=== PATIENT | male | born 1935 | race Caucasian/White ===

== ENCOUNTER → 2016-06-15 | Outpatient (CLI) | payer OTHER | LOC: BHFA 14:00 | PROVIDERS: ATTEND Internal Medicine Cardiovascular Disease | DX: I48.91 Unspecified atrial fibrillation (principal); I34.0 Nonrheumatic mitral (valve) insufficiency; I10 Essential (primary) hypertension ==

== ENCOUNTER → 2016-07-07 | Outpatient (CLI) | payer OTHER | LOC: BHFA 14:45 | PROVIDERS: ATTEND Internal Medicine Cardiovascular Disease | DX: I34.0 Nonrheumatic mitral (valve) insufficiency (principal) ==

== ENCOUNTER 2017-01-13 10:20 | Day surgery (SDC) | payer OTHER ==
[2017-01-13 11:24] LABS: HEMATOCRIT 50.6 % (40.0-51.0)
[2017-01-13] MEDS ORDERED: fentaNYL 100 MCG/2 ML INJ ONE (11:31)
[2017-01-13] MEDS ORDERED: MIDAZOLAM 2 MG/2 ML VIAL ONE (11:31)
[2017-01-13] MEDS ORDERED: NALOXONE HCL 0.4 MG/ML INJ ONE (11:32)
[2017-01-13] MEDS ORDERED: FLUMAZENIL 0.5 MG/5 ML MDV IVP ONE (11:32)
[2017-01-13 11:33] LABS: INR 1.29 (0.83-1.16); PROTIME(PATIENT) 16.1 SEC (12.0-15.0)
[2017-01-13 11:34] LABS: APTT 28.5 SEC (23.0-38.0)
[2017-01-13] MEDS ORDERED: hydrALAZINE 20 MG/ML VIAL ONE (12:41)
[2017-01-13 16:01] VITALS: TEMP 97.5
[2017-01-13 16:36] VITALS: BP 140/103; RESP 12; O2SAT 93
== END 2017-01-13 14:22 | disposition home or self-care (01) ==
LOC: FIMAGING 10:20
PROVIDERS: ATTEND Radiology Diagnostic Radiology
PROC: BB271ZZ Computerized Tomography (CT Scan) of Right Tracheobronchial Tree using Low Osmolar Contrast (ICD-10-PCS; principal; 2017-01-13 13:14)
PROC: 0BBF3ZX Excision of Right Lower Lung Lobe, Percutaneous Approach, Diagnostic (ICD-10-PCS; principal; 2017-01-13 13:14)
DX: R91.1 Solitary pulmonary nodule (principal); I48.2 Chronic atrial fibrillation; Z87.891 Personal history of nicotine dependence; J44.9 Chronic obstructive pulmonary disease, unspecified; I10 Essential (primary) hypertension; I27.2 Other secondary pulmonary hypertension; E03.9 Hypothyroidism, unspecified
CPT/HCPCS: J0360; J2250; J2310; J3010

== ENCOUNTER → 2017-01-26 | Outpatient (CLI) | payer OTHER | LOC: BHFA 10:00 | PROVIDERS: ATTEND Internal Medicine Cardiovascular Disease | DX: I34.0 Nonrheumatic mitral (valve) insufficiency (principal) ==

== ENCOUNTER 2017-02-08 08:29 | Inpatient (IN) | payer OTHER ==
[~2017-02-08 08:29] MED LIST: ceFAZolin 2 GM/DEXTROSE 100 ML IV ONE
[2017-02-08] MEDS ORDERED: LIDOCAINE 1% 2 ML INJ ID PRN (10:07)
[2017-02-08] MEDS ORDERED: LR 1,000 ML IV ONE (10:07)
[2017-02-08] MEDS ORDERED: BUPIVACAINE 0.5% 30 ML SDV ONE (10:14)
[2017-02-08] MEDS ORDERED: THROMBIN (BOVINE) 5,000 UNIT VIAL TP ONE ×2 (10:14→16:16)
[2017-02-08 10:50] LABS: INR 1.28 (0.83-1.16)
--- NOTE | 2017-02-08 12:33 | PDANEPAE ---
ANE History of Present Illness rll lung mass ANE Past Medical History - Cardiovascular History Hx Hypertension: Yes Hx Arrhythmias: Yes Hx Chest Pain: No Hx Coronary Artery / Peripheral Vascular Disease: No Hx CHF / Valvular Disease: Yes Hx Palpitations: No Cardiovascular History Comment: Chronic A-fib. CHF. MITRAL REGURGITATION. LOWER EXTREMITY SWELLING - Pulmonary History Hx COPD: Yes Hx Asthma/Reactive Airway Disease: No Hx Recent Upper Respiratory Infection: No Hx Oxygen in Use at Home: No Hx Sleep Apnea: No Sleep Apnea Screening Result - Last Documented: Positive Pulmonary History Comment: ARBEN POSITIVE REFUSES TO USE CPAP. RIGHT LOWER LOBE CA - Neurologic History Hx Cerebrovascular Accident: No Hx Seizures: No Hx Dementia: No - Endocrine History Hx Diabetes: No Endocrine History Comment: HYPOTHYROIDISM - Renal History Hx Renal Disorders: No - Liver History Hx Hepatic Disorders: No - Neurological & Psychiatric Hx Hx Neurological and Psychiatric Disorders: No - Cancer History Hx Cancer: Yes Cancer History Comment: RIGHT LOWER LUNG LOBE CURRENTLY - Congenital Disorder History Hx Congenital Disorders: No - GI History Hx Gastrointestinal Disorders: No - Other Health History Other Health History: WEARS GLASSES. MACULAR DEGENERATION - Chronic Pain History Chronic Pain: No - Surgical History Prior Surgeries: LUNG BX 01/13/17. T&A; uroscopy; ANE Review of Systems Review of systems is: negative Review of Systems: - Exercise capacity Exercise capacity: >=4 METS METS (RN): 4 METS - Cardio Pulmonary Function Testing Transthoracic echocardiogram (TTE): 01/13 EF 65% DD, mild pHTN, MR Pulmonary function tests (PFTs): DLCO 19, fev1 2.9, fvc 3.8 ANE Patient History - Allergies Allergies/Adverse Reactions: No Known Allergies Allergy (Verified 02/07/17 14:19) - Home Medications Home Medications: Ascorbic Acid [Vitamin C 500 mg (*)] 500 mg PO DAILY 01/07/17 [Last Taken ] Atenolol [Tenormin 25 mg (*)] 25 mg PO DAILY 01/07/17 [Last Taken 02/07/17] Atorvastatin Calcium [Lipitor 10 mg (*)] 10 mg PO DAILY 01/07/17 [Last Taken 04/15] Chlorthalidone [Chlorthalidone 25 mg (*)] 50 mg PO DAILY 01/07/17 [Last Taken ] Cholecalciferol Vit D3 [Vitamin D3 (*)] 1,000 units PO DAILY 01/07/17 [Last Taken 02/07/17] Folic Acid [Folic Acid 1 MG (*)] 1 mg PO DAILY 01/07/17 [Last Taken Unknown] Furosemide [Lasix 20 MG (*)] 20 mg PO DAILY 01/07/17 [Last Taken 02/01/17] Herbals/Supplements -Info Only 1 ea PO DAILY 01/07/17 [Last Taken Unknown] Levothyroxine [Synthroid 125 mcg (*)] 125 mcg PO DAILY06 01/07/17 [Last Taken ] Lisinopril [Zestril 40 mg (*)] 40 mg PO DAILY 01/07/17 [Last Taken 02/07/17] Multivitamins [Multivitamin (*)] 1 each PO DAILY 01/07/17 [Last Taken 02/06/17] Potassium Cl [Klor-Con 20 meq (*)] 20 meq PO DAILY 01/07/17 [Last Taken 02/01/17 ] Warfarin Sodium [Coumadin 2.5MG (*)] 2.5 mg PO TuWeTh@16 01/07/17 [Last Taken Unknown] Warfarin Sodium [Coumadin 5MG (*)] 5 mg PO SUMOFRSA@16 02/07/17 [Last Taken 10/13] - NPO status NPO Status: no food or drink >8 hours NPO Since - Liquids (Date): 02/07/17 NPO Since - Liquids (Time): 21:00 NPO Since - Solids (Date): 02/07/17 NPO Since - Solids (Time): 21:00 - Anes Hx Anes Hx: no prior problems - Smoking Hx Smoking Status: Former smoker - Alcohol Use Alcohol Use: Occasionally - Family Anes Hx Family Hx Anesthesia Complications: denies ANE Labs/Vital Signs - Vital Signs Blood Pressure: 146/91 Heart Rate: 85 Respiratory Rate: 16 O2 Sat (%): 91 Height: 170.18 cm Weight: 90.038 kg ANE Physical Exam - Airway Neck exam: FROM Mallampati Score: Class 2 Mouth exam: normal dental/mouth exam - Pulmonary Pulmonary: no respiratory distress - Cardiovascular Cardiovascular: irregularly irregular - ASA Status ASA Status: III ANE Anesthesia Plan Anesthesia Plan: general endotracheal anesthesia Lines/Monitors: arterial line Specialized Airway: double lumen tube, video laryngoscope Total IV Anesthesia: No
[2017-02-08] MEDS ORDERED: fentaNYL 100 MCG/2 ML INJ ONE ×4 (12:58→17:42)
[2017-02-08] MEDS ORDERED: LIDOCAINE 2% 5 ML SDV ONE (12:58)
[2017-02-08] MEDS ORDERED: ROCURONIUM 100 MG/10 ML VIAL ONE (12:58)
[2017-02-08] MEDS ORDERED: PROPOFOL 200 MG/20 ML VIAL ONE (12:59)
[2017-02-08] MEDS ORDERED: ONDANSETRON 4 MG/2 ML VIAL ONE (13:00)
[2017-02-08] MEDS ORDERED: DEXAMETHASONE 4 MG/ML VIAL ONE (13:00)
[2017-02-08] MEDS ORDERED: ESMOLOL HCL 100 MG/10 ML VIAL IV ONE (13:52)
[2017-02-08] MEDS ORDERED: ONDANSETRON 4 MG/2 ML VIAL IVP PRN ×2 (14:16→16:49)
[2017-02-08 15:13] LABS: BASE EXCESS -0.6 mEq/L (-2.5-2.5); BICARBONATE 24 mEq/L (22-26); MEASURED OXYGEN SATURATION 76 % (92-95); PCO2 41 mmHg (34-38); PO2 45 mmHg (65-75); TCO2 25 mEq/L (23-27)
[2017-02-08] MEDS ORDERED: HEPARIN 1000 UNIT/1 ML MDV ONE (15:46)
[2017-02-08 16:12] LABS: BASE EXCESS -0.1 mEq/L (-2.5-2.5); BICARBONATE 25 mEq/L (22-26); MEASURED OXYGEN SATURATION 85 % (92-95); PCO2 43 mmHg (34-38); PO2 55 mmHg (65-75); TCO2 26 mEq/L (23-27)
[2017-02-08] MEDS ORDERED: THROMBIN (BOVINE) 20,000 UNIT SPRAY TP ONE (16:16)
[2017-02-08] MEDS ORDERED: LABETALOL HCL 50 MG/10 ML SYR IVP PRN (16:49)
[2017-02-08] MEDS ORDERED: NALOXONE HCL 0.4 MG/ML INJ IVP PRN (16:49)
[2017-02-08] MEDS ORDERED: ALBUTEROL 3 ML DEYVIAL IH PRN (16:49)
[2017-02-08] MEDS ORDERED: SUGAMMADEX SODIUM 200 MG/2 ML VIAL IVP ONE ×2 (16:52)
[2017-02-08] MEDS ORDERED: ceFAZolin 1 GM VIAL ONE ×2 (16:55)
--- NOTE | 2017-02-08 17:29 | POSTANESTH ---
Post Anesthetic Evaluation Cardiovascular Status: Normal, Stable Respiratory Status: Normal, Stable Level of Consciousness/Mental Status: Mildly Sleepy, Arousable Pain Control: Adequate, Prn Tx Ordered Nausea/Vomiting Control: Adequate, Prn Tx Ordered Complications Possibly Related to Anesthesia: None Noted (pt to ICU, VSS)
[2017-02-08] MEDS ORDERED: HYDROmorphONE/DILAUDID 1 MG/ML INJ ONE (17:42)
[2017-02-08] MEDS: fentaNYL 100 MCG/2 ML INJ IVP PRN ×2 (17:44→18:07)
[2017-02-08] MEDS: HYDROmorphONE/DILAUDID 1 MG/ML INJ IVP PRN ×7 (17:44→21:53)
--- NOTE | 2017-02-08 17:55 | POSTOPPROG ---
Post Op Note Date of Operation: 02/08/17 Surgeon: Narinder Ospina Annealing Torch Operator: OSVALDO Anesthesiologist: MIKAELA Anesthesia: GET(General Endotracheal) Pre-op Diagnosis: RLL LUNG CANCER Post-op Diagnosis: SAME Indication: CANCER Procedure: MEDIASTINOSCOPY/ VATS RLLOBECTOMY Findings: 2 CM RLL CANCER AT PERIPHERY WITH PUCKERED PLEURA/ NO BAD NODES Inf/Abcess present in the surg proc area at time of surgery?: No Depth: Organ Space EBL: 100-500 Complications: 0 Drains: Constavac Specimen(s): RLL
--- NOTE | 2017-02-08 19:47 | SOAPPROG ---
SOAP Progress Note Assessment/Plan: Assessment/Plan: 81 Y M s/p mediastinscopy, VATS lobectomy, POD#0. AFVSS. Wounds intact. CXR well expanded. Continue routine post op care. 02/08/17 19:46 Objective: Vital Signs Temp Pulse Resp BP Pulse Ox 36.5 C 85 15 117/74 91 L 02/08/17 18:57 02/08/17 12:37 02/08/17 19:21 02/08/17 19:17 02/08/17 19:21 02/07/17 02/08/17 02/09/17 05:59 05:59 05:59 Intake Total 1700 Output Total 985 Balance 715 PT 16.0 SEC (12.0-15.0) H 02/08/17 10:28 INR 1.28 (0.83-1.16) H 02/08/17 10:28 ICD10 Worksheet Patient Problems: Problems Problem Status Onset Lung mass Acute - ICD10 Problem Qualifiers (1) Lung mass
[2017-02-08] MEDS: BUPIVACAINE 0.5% 30 ML SDV CT SCH (20:40)
[2017-02-08] MEDS ORDERED: HYDROmorphONE/DILAUDID 1 MG/ML INJ IVP PRN (21:39)
[2017-02-08] MEDS: OXYCODONE/APAP 5/325 TAB PO PRN (21:53)
[2017-02-08] MEDS: D5W 1/2 NS W/ 20 KCl/L 1,000 ML IV SCH (22:01)
[2017-02-09] MEDS: BUPIVACAINE 0.5% 30 ML SDV CT SCH ×6 (01:03→21:48)
[2017-02-09] MEDS ORDERED: FUROSEMIDE 20 MG/2 ML VIAL IVP ONE (02:00)
[2017-02-09 04:44] LABS: HEMOGLOBIN 16.5 g/dL (13.7-17.5)
[2017-02-09 05:03] LABS: ANION GAP 15 mEq/L (8-16); CALCIUM 9.2 mg/dL (8.5-10.4); CARBON DIOXIDE 22 mEq/l (22-31); CHLORIDE 104 mEq/L (97-110); CREATININE 1.4 mg/dL (0.7-1.3); GLOMERULAR FILTRATION RATE 49; GLUCOSE 187 mg/dL (70-100); POTASSIUM 4.3 mEq/L (3.5-5.2); SODIUM 141 mEq/L (134-144)
[2017-02-09] MEDS: LEVOTHYROXINE 125 MCG TAB PO SCH (05:54)
[2017-02-09] MEDS: LISINOPRIL 40 MG TAB PO SCH (08:37)
[2017-02-09] MEDS: CHLORTHALIDONE 25 MG TAB PO SCH (08:37)
[2017-02-09] MEDS: FUROSEMIDE 20 MG TAB PO SCH (08:37)
[2017-02-09] MEDS: POTASSIUM CL 20 MEQ TAB PO SCH (08:38)
[2017-02-09] MEDS: ATORVASTATIN CALCIUM 10 MG TAB PO SCH (08:42)
[2017-02-09] MEDS: ATENOLOL 25 MG TAB PO SCH (08:42)
--- NOTE | 2017-02-09 09:08 | SOAPPROG ---
SOAP Progress Note Assessment/Plan: Assessment/Plan: 81 Y M s/p mediastinscopy, VATS lobectomy, POD#1. Pulm: Continue CT to LWS. IS. OOB. Deep breathing. Cardiac: hx CHF, afib. Cont atenolol, lasix. Restart coumadin today, INR series x 3. Lovenox tomorrow. GI: regular diet. pepcid GI ppx. : continue shay, accurate I and O's; CRI, Cr 1.4, stable compared to prior labs. Repeat labs in am. Heme: no anemia. Neuro: continue pain control PRN. marcaine cath in place. Endo: levothyroxine for hypothyroid. Wounds: well dressed. Keep dry. Also seen by Dr. Ospina earlier this morning. Dispo: transfer from ICU. S: not in much pain, denies SOB, ate this morning but not impressed with the food. no n/v. O: gen: alert, nad, making jokes heent: mmm chest: clear at apices, +intermittent air leak at rest, seen with cough cor: rrr abd: soft, nt wounds: well dressed. 02/09/17 09:13 Objective: Vital Signs Temp Pulse Resp BP Pulse Ox 36 C 98 18 105/76 97 02/09/17 08:00 02/09/17 08:42 02/09/17 08:00 02/09/17 08:42 02/09/17 08:00 Laboratory Results 02/09/17 04:35 02/09/17 04:35 02/08/17 02/09/17 02/10/17 05:59 05:59 05:59 Intake Total 2786 Output Total 1585 Balance 1201 PT 16.0 SEC (12.0-15.0) H 02/08/17 10:28 INR 1.28 (0.83-1.16) H 02/08/17 10:28 ICD10 Worksheet Patient Problems: Problems Problem Status Onset Lung mass Acute - ICD10 Problem Qualifiers (1) Lung mass
--- NOTE | 2017-02-09 12:22 | GOP ---
[f rep st] OPERATIVE REPORT DATE OF OPERATION: 02/08/2017 SURGEON: Narinder Ospina MD ANESTHESIOLOGIST: Jc Dc MD. PREOPERATIVE DIAGNOSIS: Right lung cancer. POSTOPERATIVE DIAGNOSIS: Right lung cancer. PROCEDURE PERFORMED: Mediastinoscopy. FINDINGS: The patient was found to have no obvious mediastinal nodes of significance. ESTIMATED BLOOD LOSS: Negligible. DESCRIPTION OF PROCEDURE: The patient was taken to the operating room where he received satisfactory general endotracheal anesthesia by Dr. Dc. He was placed in a supine position, prepped and dr aped in usual sterile fashion with the neck extended. A short incision was made in the low neck. Di ssection was carried down through the platysma. Strap muscles were in the midline. Pretra cheal space was entered and using blunt dissection extended down into the chest. He had a rather pro minent innominate artery filling up the suprasternal notch. Dissection extended down underneath the innominate down to the pulmonary artery. No significant major lymph nodes were encountered and disse cting in the area. Hemostasis was assured. The wound was irrigated and the scope was removed. The wound was closed with 3-0 Vicryl for the strap muscles, 3-0 Vicryl for the platysma, 4-0 Monocryl sub cuticular stitch for the skin. All layers infiltrated with 0.5% Marcaine. DISPOSITION: Taken to recovery room in good condition. /[id number]/MODL
--- NOTE | 2017-02-09 13:02 | GOP ---
[f rep st] OPERATIVE REPORT DATE OF OPERATION: 02/08/2017 SURGEON: Narinder Ospina MD CASHIER TUBE ROOM: LIZZY Brown and Dr. Good Doan MD ANESTHESIOLOGIST: Dr. Dc. PREOPERATIVE DIAGNOSIS: Right lower lobe lung cancer. POSTOPERATIVE DIAGNOSIS: Right lower lobe lung cancer. PROCEDURE PERFORMED: Video-assisted thoracoscopic surgery, right lower lobectomy. Intercostal nerve block. Marcaine catheter placement FINDINGS: The patient was found to have a 2 cm mass in the periphery of the right lower lobe, which was puckering the lobe. He had some emphysematous changes in his lung. ESTIMATED BLOOD LOSS: Less than 300 cc. DESCRIPTION OF PROCEDURE: The patient was in the operating room with general endotracheal anesthesia by Dr. Dc. A double-lumen endotracheal tube was placed, and he was placed in the left lateral decubitus position, prepped and draped in usual sterile fashion. A short incision was made in the 6 th intercostal space in the midaxillary line. A trocar was introduced, a thoracoscope introduced. A dequate visualization was obtained. Four other trocars were placed in separate areas in the right ch est. The lower lobe was retracted. The major fissure was well developed. The basilar pulmonary art archana was then carefully dissected free until it could be encircled with a vascular stapler. It was th en transected without difficulty. The superior segmental artery was also transected separately with a vascular stapler. Lymph nodes were dissected free from the pulmonary artery and left with the spec imen. Attention was turned to the inferior pulmonary ligament, which was divided with the Harmonic S calpel until the pulmonary vein was exposed. This was then carefully dissected free, dividing the pl eura on either side of the pulmonary vein until it too could be encircled. It was then also divided with the endovascular stapler. The remainder of any pleural attachments were divided with the Multani ic Scalpel and/or those staplers, skeletonizing the lower lobe bronchus. This was then cross-clamped with an Endo-SHAWNEE stapler, and the upper and middle lobe were then re-expanded and appeared to have n o compromise. The stapler was then fired, closing the lower lobe bronchus, and the lung was then rem aakash. One of the trocar sites was enlarged to 3 inches in size for evacuation of the lung. Hemostas is was assured. The specimen was sent to Pathology, and the margins appeared to be clear. Intercost al nerve block was done with 0.5% Marcaine. Two #28 chest tubes were brought in through separate tro car sites and secured to the skin with silk sutures. The muscular layers were closed with a running #1 Vicryl suture. Wound was directly infiltrated with 0.5% Marcaine. Subcu was closed with a runnin g 3-0 Vicryl suture, and the skin with skin stewart. Additional trocar sites were closed with skin s taples as well. The wounds were dressed. A 16-N[place] Marcaine catheter was inserted intercostally a s well and placed posteriorly in the chest, secured at the skin with silk suture for a Marcaine infus ion. He tolerated procedure well, was taken to the recovery room in good condition. There were no c omplications. /[id number]/MODL
[2017-02-09] MEDS ORDERED: WARFARIN SODIUM 2.5 MG TAB PO SCH (16:00)
[2017-02-09] MEDS: NS 1,000 ML IV SCH (16:02)
[2017-02-09] MEDS ORDERED: IPRATROPIUM/ALBUTEROL 3 ML DEYVIAL ONE (16:40)
[2017-02-09] MEDS: IPRATROPIUM/ALBUTEROL 3 ML DEYVIAL IH SCH ×2 (16:48→20:08)
[2017-02-09] MEDS: FAMOTIDINE 20 MG TAB PO SCH (21:48)
[2017-02-10] MEDS: NS 1,000 ML IV SCH (01:49)
[2017-02-10] MEDS: BUPIVACAINE 0.5% 30 ML SDV CT SCH ×6 (01:50→21:31)
[2017-02-10] MEDS: OXYCODONE/APAP 5/325 TAB PO PRN ×2 (04:05→05:54)
[2017-02-10] MEDS: LEVOTHYROXINE 125 MCG TAB PO SCH (04:06)
[2017-02-10 05:27] LABS: INR 1.37 (0.83-1.16); PROTIME(PATIENT) 16.9 SEC (12.0-15.0)
[2017-02-10 05:28] LABS: ANION GAP 13 mEq/L (8-16); CALCIUM 9.1 mg/dL (8.5-10.4); CARBON DIOXIDE 27 mEq/l (22-31); CHLORIDE 102 mEq/L (97-110); CREATININE 1.8 mg/dL (0.7-1.3); GLOMERULAR FILTRATION RATE 36; GLUCOSE 104 mg/dL (70-100); POTASSIUM 4.6 mEq/L (3.5-5.2); SODIUM 142 mEq/L (134-144)
[2017-02-10] MEDS: IPRATROPIUM/ALBUTEROL 3 ML DEYVIAL IH SCH ×4 (05:37→20:55)
[2017-02-10] MEDS: HYDROmorphONE/DILAUDID 1 MG/ML INJ IVP PRN (08:02)
[2017-02-10] MEDS: FUROSEMIDE 20 MG TAB PO SCH (08:03)
[2017-02-10] MEDS: ATORVASTATIN CALCIUM 10 MG TAB PO SCH (08:03)
[2017-02-10] MEDS: ATENOLOL 25 MG TAB PO SCH (08:03)
[2017-02-10] MEDS: FAMOTIDINE 20 MG TAB PO SCH (08:03)
[2017-02-10] MEDS: POTASSIUM CL 20 MEQ TAB PO SCH (08:03)
[2017-02-10] MEDS: LISINOPRIL 40 MG TAB PO SCH (08:04)
[2017-02-10] MEDS: CHLORTHALIDONE 25 MG TAB PO SCH (08:04)
[2017-02-10] MEDS ORDERED: ENOXAPARIN 40 MG/0.4 ML SYR SC SCH (09:00)
[2017-02-10] MEDS ORDERED: LACTULOSE 20 GM/30 ML UDCUP PO PRN (11:18)
[2017-02-10] MEDS ORDERED: MAGNESIUM HYDROXIDE 30 ML UDCUP PO PRN (11:18)
[2017-02-10] MEDS ORDERED: POLYETHYLENE GLYCOL 3350 17 GM PKT PO PRN (11:18)
[2017-02-10] MEDS ORDERED: BISACODYL 10 MG SUPP PR PRN (11:18)
--- NOTE | 2017-02-10 12:07 | SOAPPROG ---
SOBRAIN Progress Note Assessment/Plan: Assessment: 81 Y M s/p mediastinscopy, VATS lobectomy, POD#1. Continue CT to LWS. Will obtain a second CXR after [address] 200cc out since 6am today. Respiratory therapy to see. Bowel reg Continue pain control. Coumadin restarted yesterday. INR today 1.37. Lovenox today. Cont Chapman for accurate Is and Os Cr stable Wounds well dressed, keep dry Discussed with Dr. Ospina S: Pain well controlled. Denies SOB, N/V. Not passing flatus or BM. Tolerating diet. O: Sitting up in chair. NAD MMM No airleak appreciated Lungs clear at apices. RRR Abdomen soft, nontender. Hypoactive BS Objective: Vital Signs Temp Pulse Resp BP Pulse Ox 36.8 C 103 H 17 155/62 H 93 02/10/17 08:00 02/10/17 10:35 02/10/17 10:35 02/10/17 08:04 02/10/17 10:35 Laboratory Results 02/09/17 04:35 02/10/17 04:05 02/09/17 02/10/17 02/11/17 05:59 05:59 05:59 Intake Total 2786 2014 Output Total 1585 1570 Balance 1201 445 PT 16.9 SEC (12.0-15.0) H 02/10/17 04:05 INR 1.37 (0.83-1.16) H 02/10/17 04:05 ICD10 Worksheet Patient Problems: Problems Problem Status Onset Lung mass Acute
[2017-02-10] MEDS: D5W 1/2 NS W/ 20 KCl/L 1,000 ML IV SCH (13:05)
--- NOTE | 2017-02-10 15:59 | ASMTCMCOM ---
CM Note CM Note Notes: Met w/ pt, reviewed chart and spoke w/RN. Pt pays for private care givers for 12 hours a day during the overnight shift. No case management d/c needs identified., PT recommending Home. Case management d/c poc: Home w/family support and private healthcare architect support. Case management available if needs change. Date Signed: 02/10/2017 03:59 PM Electronically Signed By:Jayda Higgins RN
[2017-02-10] MEDS ORDERED: WARFARIN SODIUM 2.5 MG TAB PO SCH (16:00)
--- NOTE | 2017-02-10 17:05 | SOAPPROG ---
SOAP Progress Note Assessment/Plan: Assessment: MUCH IMPROVED THIS AFTERNOON WITH BETTER EX EXPANSION ON HIS CHEST X-RAY. 1 CHEST TUBE IS COMING OUT OF THE CHEST BUT STILL NO AIR LEAK. MODERATE DRAINAGE PATH PENDING Plan: HOPEFULLY CHEST TUBES OUT IN THE A.M. 02/10/17 17:04 Objective: Vital Signs Temp Pulse Resp BP Pulse Ox 36.4 C 81 14 130/95 H 95 02/10/17 16:52 02/10/17 16:52 02/10/17 16:52 02/10/17 16:52 02/10/17 16:52 Laboratory Results 02/09/17 04:35 02/10/17 04:05 02/09/17 02/10/17 02/11/17 05:59 05:59 05:59 Intake Total 9786 2014 Output Total 1585 1570 Balance 1201 445 PT 16.9 SEC (12.0-15.0) H 02/10/17 04:05 INR 1.37 (0.83-1.16) H 02/10/17 04:05 ICD10 Worksheet Patient Problems: Problems Problem Status Onset Lung mass Acute
[2017-02-10] MEDS: SENNOSIDES/DOCUSATE SODIUM TAB PO SCH (21:31)
[2017-02-11] MEDS: BUPIVACAINE 0.5% 30 ML SDV CT SCH ×7 (01:40→22:29)
[2017-02-11] MEDS: OXYCODONE/APAP 5/325 TAB PO PRN (01:41)
[2017-02-11 05:18] LABS: INR 1.48 (0.83-1.16); PROTIME(PATIENT) 17.9 SEC (12.0-15.0)
[2017-02-11] MEDS: IPRATROPIUM/ALBUTEROL 3 ML DEYVIAL IH SCH ×4 (05:57→20:35)
[2017-02-11] MEDS: LEVOTHYROXINE 125 MCG TAB PO SCH (06:22)
[2017-02-11] MEDS: ATORVASTATIN CALCIUM 10 MG TAB PO SCH (08:52)
[2017-02-11] MEDS: SENNOSIDES/DOCUSATE SODIUM TAB PO SCH ×2 (08:52→20:31)
[2017-02-11] MEDS: LISINOPRIL 40 MG TAB PO SCH (08:52)
[2017-02-11] MEDS: POTASSIUM CL 20 MEQ TAB PO SCH (08:52)
[2017-02-11] MEDS: CHLORTHALIDONE 25 MG TAB PO SCH (08:52)
[2017-02-11] MEDS: FUROSEMIDE 20 MG TAB PO SCH (08:52)
[2017-02-11] MEDS: FAMOTIDINE 20 MG TAB PO SCH (08:52)
[2017-02-11] MEDS: ATENOLOL 25 MG TAB PO SCH (08:52)
--- NOTE | 2017-02-11 10:33 | SOAPPROG ---
SOAP Progress Note Assessment/Plan: Assessment: MUCH IMPROVED THIS AFTERNOON WITH BETTER EX EXPANSION ON HIS CHEST X-RAY. 1 CHEST TUBE IS COMING OUT OF THE CHEST BUT STILL NO AIR LEAK. MODERATE DRAINAGE PATH PENDING Plan: HOPEFULLY CHEST TUBES OUT IN THE A.M. 02/10/17 17:04 02/11/17 10:31 Afebrile/he is reasonably comfortable/wound okay/no air leak/drainage decreased/ plan DC chest tubes, superior chest tube is coming out on its own/path pending Hopefully he will have a better respiratory effort without the chest tubes in place Objective: Vital Signs Temp Pulse Resp BP Pulse Ox 36.5 C 90 16 104/69 83 L 02/11/17 07:55 02/11/17 07:55 02/11/17 07:55 02/11/17 07:55 02/11/17 08:12 Laboratory Results 02/09/17 04:35 02/10/17 04:05 02/10/17 02/11/17 02/12/17 05:59 05:59 05:59 Intake Total 2014 2647 Output Total 1570 2240 200 Balance 445 408 -200 PT 17.9 SEC (12.0-15.0) H 02/11/17 04:00 INR 1.48 (0.83-1.16) H 02/11/17 04:00 ICD10 Worksheet Patient Problems: Problems Problem Status Onset Lung mass Acute
[2017-02-11] MEDS ORDERED: NS 1,000 ML IV SCH (15:00)
[2017-02-11] MEDS ORDERED: WARFARIN SODIUM 5 MG TAB PO SCH ×2 (16:00)
--- NOTE | 2017-02-11 16:04 | ASMTCMCOM ---
CM Note CM Note Notes: Met with patient who is unable to clearly articulate follow up POC for discharge. Spoke with his daughter Wendy (also POA) and it is her wish that he have some rehab as he tries to care for his SO who has multiple medical issues, She will meet with CM and patient tomorrow to formulate a plan for discharge. Currently 24 hour cargivers present in home for 1 week but primarily to care for Rosamaria his SO. Patient has been to [facility] in the past for rehab. Daughter did mention that she is closer to [facility]. FAVIOLA in chart if needed. CM to follow. Date Signed: 02/11/2017 04:04 PM Electronically Signed By:Saba Souza RN
[2017-02-12] MEDS: LEVOTHYROXINE 125 MCG TAB PO SCH (03:58)
[2017-02-12] MEDS: BUPIVACAINE 0.5% 30 ML SDV CT SCH (03:59)
[2017-02-12] MEDS: IPRATROPIUM/ALBUTEROL 3 ML DEYVIAL IH SCH ×2 (05:57→11:35)
[2017-02-12 06:19] LABS: INR 1.62 (0.83-1.16); PROTIME(PATIENT) 19.3 SEC (12.0-15.0)
[2017-02-12 07:24] VITALS: RESP 16
[2017-02-12] MEDS: FAMOTIDINE 20 MG TAB PO SCH (09:09)
[2017-02-12] MEDS: ATENOLOL 25 MG TAB PO SCH (09:09)
[2017-02-12] MEDS: CHLORTHALIDONE 25 MG TAB PO SCH (09:09)
[2017-02-12] MEDS: ATORVASTATIN CALCIUM 10 MG TAB PO SCH (09:09)
[2017-02-12] MEDS: POTASSIUM CL 20 MEQ TAB PO SCH (09:10)
[2017-02-12] MEDS: FUROSEMIDE 20 MG TAB PO SCH (09:10)
[2017-02-12] MEDS: SENNOSIDES/DOCUSATE SODIUM TAB PO SCH (09:10)
[2017-02-12] MEDS: LISINOPRIL 40 MG TAB PO SCH (09:10)
[2017-02-12] MEDS ORDERED: ACETAMINOPHEN 325 MG TAB PO PRN (09:31)
[2017-02-12 10:21] LABS: % IMMATURE GRANULYOCYTES 0.5 % (0.0-1.1); ABSOLUTE IMMATURE GRANULOCYTES 0.06 10^3/uL (0.00-0.10); ADD DIFF? NO; ADD MORPH? NO; ADD SCAN? NO; ATYPICAL LYMPHOCYTE FLAG 0 (0-99); FRAGMENT RBC FLAG 0 (0-99); HEMATOCRIT 42.2 % (40.0-51.0); LEFT SHIFT FLG 0 (0-99); LIPEMIA HEMOLYSIS FLAG 80 (0-99); MEAN CELL HEMOGLOBIN 31.6 pg (27.9-34.1); MEAN CELL HEMOGLOBIN CONCENTR. 33.2 g/dL (32.4-36.7); MEAN CELL VOLUME 95.3 fL (81.5-99.8); MEAN PLATELET VOLUME 11.5 fL (8.7-11.7); PLATELET CLUMPS FLAG 0 (0-99); PLATELET COUNT 158 10^3/uL (150-400); RED BLOOD CELL COUNT 4.43 10^6/uL (4.40-6.38); RED CELL DISTRIBUTION WIDTH 13.5 % (11.5-15.2)
--- NOTE | 2017-02-12 10:37 | SOAPPROG ---
SOAP Progress Note Assessment/Plan: Assessment: 81yo male s/p right lower lobectomy for right lower lobe lung cancer. POD#6 Plan: Neuro: pain not well controlled. Per nurse pt seems resistant to narcotics. Will order tylenol PO Wound: No heavy lifting pushing or pulling greater than 15 lbs for 5 weeks Remove dressing on Tuesday02/14/2017 May shower 02/14/2017 without dressings Follow up with Dr. Ospina in 1 week Get a chest x ray prior to appointment Cardio: Stable Resp: Continue deep inspiration/coughing/IS to improve lung function. Continue oxygen therapy until pt is above 90% on RA. Chest x-ray showed small pneumothorax stable from previous CXRs. FEN: Discontinue IV fluids, labs have been showing decreasing creatinine over the past several days will order full chemistry panel to evaluate. regular diet. Get CBC and BMP in one week Heme/ID: Stable PT/OT: Will discharge to rehab facility ([facility]) S: Pt is doing well overall and would like to go home today but had two falls last night. He is upset discharge to home is not recommended. O: Gen: WDWN elderly male sitting in chair eating breakfast HEENT: Normocephalic atraumatic, PER, no gross hearing deficits, mucous membranes moist Respiratory: Lungs are clear to auscultation bilaterally with decreased breath sounds in the right lower field. No increased work of breathing. Oxygen 3L via nasal cannula. Cor: Regular rate Chest: Dressings intact without staining. 02/12/17 10:25 02/12/17 11:14 Objective: Vital Signs Temp Pulse Resp BP Pulse Ox 36.7 C 89 16 116/79 94 02/12/17 07:21 02/12/17 07:21 02/12/17 07:21 02/12/17 07:21 02/12/17 07:21 Laboratory Results 02/12/17 10:11 02/11/17 02/12/17 02/13/17 05:59 05:59 05:59 Intake Total 2648 1520 Output Total 2240 0 Balance 408 -530 PT 19.3 SEC (12.0-15.0) H 02/12/17 05:00 INR 1.62 (0.83-1.16) H 02/12/17 05:00 ICD10 Worksheet Patient Problems: Problems Problem Status Onset Lung mass Acute
[2017-02-12 10:46] LABS: ANION GAP 12 mEq/L (8-16); CARBON DIOXIDE 26 mEq/l (22-31); CHLORIDE 103 mEq/L (97-110); CREATININE 1.4 mg/dL (0.7-1.3); GLOMERULAR FILTRATION RATE 49; GLUCOSE 152 mg/dL (70-100); POTASSIUM 3.8 mEq/L (3.5-5.2); SODIUM 141 mEq/L (134-144)
[2017-02-12 11:21] VITALS: BP 128/78; TEMP 97.8
[2017-02-12 11:41] VITALS: PULSE 80; O2SAT 96
--- NOTE | 2017-02-12 11:54 | PDIAF ---
- Diagnosis Diagnosis: lung cancer Code Status: Full Code - Medication Management Discharge Medications: Medications to Continue on Transfer Ascorbic Acid [Vitamin C 500 mg (*)] 500 mg PO DAILY 01/07/17 [Last Taken ] Atenolol [Tenormin 25 mg (*)] 25 mg PO DAILY 01/07/17 [Last Taken 02/07/17] Atorvastatin Calcium [Lipitor 10 mg (*)] 10 mg PO DAILY 01/07/17 [Last Taken 04/15] Chlorthalidone [Chlorthalidone 25 mg (*)] 50 mg PO DAILY 01/07/17 [Last Taken ] Cholecalciferol Vit D3 [Vitamin D3 (*)] 1,000 units PO DAILY 01/07/17 [Last Taken 02/07/17] Folic Acid [Folic Acid 1 MG (*)] 1 mg PO DAILY 01/07/17 [Last Taken Unknown] Furosemide [Lasix 20 MG (*)] 20 mg PO DAILY 01/07/17 [Last Taken 02/01/17] Herbals/Supplements -Info Only 1 ea PO DAILY 01/07/17 [Last Taken Unknown] Levothyroxine [Synthroid 125 mcg (*)] 125 mcg PO DAILY06 01/07/17 [Last Taken ] Lisinopril [Zestril 40 mg (*)] 40 mg PO DAILY 01/07/17 [Last Taken 02/07/17] Multivitamins [Multivitamin (*)] 1 each PO DAILY 01/07/17 [Last Taken 02/06/17] Potassium Cl [Klor-Con 20 meq (*)] 20 meq PO DAILY 01/07/17 [Last Taken 02/01/17 ] Warfarin Sodium [Coumadin 2.5MG (*)] 2.5 mg PO TUTHSA@16 01/07/17 [Last Taken Unknown] Warfarin Sodium [Coumadin 5MG (*)] 5 mg PO SUMOWEFR@02/07/17 [Last Taken 10/13] Acetaminophen [Tylenol 325mg (*)] 650 mg PO Q4HRS PRN tab 02/12/17 [Last Taken Unknown] Discharge Medications: Refer to the Discharge Home Medication list for PRN reason. - Orders Oxygen: 3 L and wean as appropriate Diet Recommendation: no restrictions on diet Wound Care Instructions: remove dressing on 9/18. May shower. May remove every other staple on 02/17/2017 Activity/Weight Bearing Restrictions: No heavy lifting, pushing or pulling greater than 15 lbs until March 23, 2017 - Labs/Radiology BMP Date: 02/16/17 CBC Date: 02/16/17 Imaging Orders: Chest x ray prior to appointment with Dr. Ospina - Follow Up Care Current Providers and Referrals: Narinder Ospina MD [Medical Doctor] - follow up in 1 week (call to make an appointment) Sharla Aguirre NP [Primary Care Provider] -
--- NOTE | 2017-02-12 12:14 | ASMTCMCOM ---
CM Note CM Note Notes: Today RN asked SWer to speak w/ Pt. about his d/c plan. Pt. has been refusing SNF, but fell twice yesterday and is at great risk if he goes home. Reportedly, Pt's partner Pat has been debilitated and the couple has been having "[facility] 24-hour care" per Pt. SWer met w/ Pt. in room and after a discussion Pt. agreed to go to [facility] SNF. Pt. states he has been there before. [facility] has a bed today and Pt. can d/c there today. Coordinated w/ MD for d/c planning. All documentation provided through [employer] including d/c paperwork. Dtr is wary about [facility] reviews online, but is OK with d/c and grateful that SW had successful conversation with Pt. Pt. to be picked up by [facility]'s wheelchair at 13:00. RN is aware. Pt. d/c'ed today to [facility] for rehab. Date Signed: 02/12/2017 12:13 PM Electronically Signed By:Paulina Zelaya LCSW
--- NOTE | 2017-02-12 17:06 | ASDISCHSUM ---
Discharge Information Plan Status:SNF Medically Cleared to Leave: Discharge Date:02/12/2017 01:53 PM D/C Disposition:[facility] ADT D/C Disposition:[facility] Facility Projected Discharge Date:02/12/2017 11:00 AM Transportation at D/C:Wheelchair Van Discharge Delay Reason: Follow-Up Date:02/12/2017 11:00 AM Discharge Slot: Final Diagnosis: Placement Information Referral Type:*Long-Term/SNF Referral ID:[id number] Provider Name:Dunia Scott Address 1[address] Phone Number: Address 2: Fax Number: City:[place] Selection Factors: State:[place] Patient Contact Information Contact Name:ELYSIA Relationship:Daughter Address: City: [facility] Phone: [facility] Code: Email: Financial Information Financial Class: Primary Plan Desc:MEDICARE INPATIENT Primary Plan Number:[id number] Secondary Plan Desc:YOBANY Secondary Plan Number:[id number] Assessment Information [facility] CM Progress Note CM Note CM Note Notes: Met w/ pt, reviewed chart and spoke w/RN. Pt pays for private care givers for 12 hours a day during the overnight shift. No case management d/c needs identified., PT recommending Home. Case management d/c poc: Home w/family support and private direct care staffer support. Case management available if needs change. Date Signed: 02/10/2017 03:59 PM Electronically Signed By:Jayda Higgins RN [facility] CM Progress Note CM Note CM Note Notes: Met with patient who is unable to clearly articulate follow up POC for discharge. Spoke with his daughter Wendy (also POA) and it is her wish that he have some rehab as he tries to care for his SO who has multiple medical issues, She will meet with CM and patient tomorrow to formulate a plan for discharge. Currently 24 hour cargivers present in home for 1 week but primarily to care for Rosamaria his SO. Patient has been to [facility] in the past for rehab. Daughter did mention that she is closer to [place]. FAVIOLA in chart if needed. CM to follow. Date Signed: 02/11/2017 04:04 PM Electronically Signed By:Saba Souza RN [facility] CM Progress Note CM Note CM Note Notes: Today RN asked SWer to speak w/ Pt. about his d/c plan. Pt. has been refusing SNF, but fell twice yesterday and is at great risk if he goes home. Reportedly, Pt's partner Pat has been debilitated and the couple has been having "[facility] 24-hour care" per Pt. SWer met w/ Pt. in room and after a discussion Pt. agreed to go to [facility]. Pt. states he has been there before. [facility] has a bed today and Pt. can d/c there today. Coordinated w/ MD for d/c planning. All documentation provided through [employer] including d/c paperwork. Dtr is wary about [facility]'s reviews online, but is OK with d/c and grateful that SW had successful conversation with Pt. Pt. to be picked up by [facility]'s wheelchair at 13:00. RN is aware. Pt. d/c'ed today to [facility] for rehab. Date Signed: 02/12/2017 12:13 PM Electronically Signed By:Paulina Zelaya LCSW Intervention Information
== END 2017-02-12 13:53 | DRG 164 ==
LOC: F3E 09:33 → F2N 19:32 → F2W 02-09 10:23
PROVIDERS: ADMIT Surgery; ATTEND Surgery
PROC: 0BTF4ZZ Resection of Right Lower Lung Lobe, Percutaneous Endoscopic Approach (ICD-10-PCS; principal; 2017-02-08 11:30)
PROC: 0WJC4ZZ Inspection of Mediastinum, Percutaneous Endoscopic Approach (ICD-10-PCS; principal; 2017-02-08 11:30)
DX: C34.31 Malignant neoplasm of lower lobe, right bronchus or lung (principal); I48.91 Unspecified atrial fibrillation; I50.30 Unspecified diastolic (congestive) heart failure; I11.0 Hypertensive heart disease with heart failure; J44.9 Chronic obstructive pulmonary disease, unspecified; E78.5 Hyperlipidemia, unspecified; I27.2 Other secondary pulmonary hypertension; G47.30 Sleep apnea, unspecified; I34.0 Nonrheumatic mitral (valve) insufficiency; Z79.01 Long term (current) use of anticoagulants
CPT/HCPCS: 97116-GP; 97161-GP; 97165-GO; 97530-GO; 97535-GO; G8978-GP-CJ; G8979-GP-CI; G8987-GO-CJ; G8988-GO-CI; J0690; J1100; J1170; J1940; J2405; J2704; J3010

== ENCOUNTER → 2017-03-28 | Outpatient (CLI) | payer OTHER | LOC: FIMAGING 12:03 | PROVIDERS: ATTEND Surgery | DX: C34.31 Malignant neoplasm of lower lobe, right bronchus or lung (principal); Z90.2 Acquired absence of lung [part of] ==

== ENCOUNTER → 2017-03-31 | Outpatient (CLI) | payer OTHER | LOC: FCPNEURO 08:54 | PROVIDERS: ATTEND Psychiatry & Neurology Neurology | DX: R41.3 Other amnesia (principal) ==

== ENCOUNTER → 2017-03-31 | Outpatient (CLI) | payer OTHER ==
--- NOTE | 2017-03-31 11:44 | CPEEG ---
[f rep st] ELECTROENCEPHALOGRAM DATE OF STUDY: 03/31/2017 INTERPRETATION: Normal EEG during wakefulness and partial sleep. There were no potentially epilepto genic abnormalities present during the recording. REPORT: This EEG contains 9-10 Hz alpha to the posterior head regions. There was no abnormal activa tion at rest. The patient intermittently became drowsy and fell into light sleep during the study. There was no abnormal activation during drowsiness, light sleep, or during times of arousal. /[id number]/MODL
== END ==
LOC: FCPNEURO 20:00
PROVIDERS: ATTEND Internal Medicine Sleep Medicine
DX: G47.33 Obstructive sleep apnea (adult) (pediatric) (principal); G47.39 Other sleep apnea; G47.61 Periodic limb movement disorder; R41.3 Other amnesia

== ENCOUNTER → 2017-04-18 | Outpatient (CLI) | payer OTHER | LOC: FIMAGING 13:28 | PROVIDERS: ATTEND Psychiatry & Neurology Neurology | DX: G31.9 Degenerative disease of nervous system, unspecified (principal) ==

== ENCOUNTER → 2017-07-04 | Outpatient (CLI) | payer OTHER | LOC: FLAB 15:39 | PROVIDERS: ATTEND Surgery | DX: Z08 Encounter for follow-up examination after completed treatment for malignant neoplasm (principal); D38.1 Neoplasm of uncertain behavior of trachea, bronchus and lung; Z90.2 Acquired absence of lung [part of] ==

== ENCOUNTER → 2017-10-31 | Outpatient (CLI) | payer OTHER | LOC: FIMAGING 15:45 | PROVIDERS: ATTEND Surgery | DX: Z08 Encounter for follow-up examination after completed treatment for malignant neoplasm (principal); Z85.118 Personal history of other malignant neoplasm of bronchus and lung; Z90.2 Acquired absence of lung [part of] ==

== ENCOUNTER → 2018-03-22 | Outpatient (CLI) | payer OTHER | LOC: BHFA 11:30 | PROVIDERS: ATTEND Internal Medicine Cardiovascular Disease | DX: I48.91 Unspecified atrial fibrillation (principal) ==